=== PATIENT | male | born 1985 ===

== ENCOUNTER 2021-06-22 23:32 | Emergency (ER) | payer SELFPAY ==
--- NOTE | 2021-06-23 11:38 | Event Note ---
ED Screening Note Date of service: 06/23/21 Time: 11:35 ED Screening Note: 35-year-old male comes in reporting he is having blood in his urine back pain suprapubic pain. Patient was seen at [facility]. Patient had lab work done and MRI and it shows that patient has 2-3 grade hydronephrosis of his left kidney. Patient comes in stating he has pain. Paperwork recommends for him to have a CT scan with and without contrast. This initial assessment/diagnostic orders/clinical plan/treatment(s) is/are subject to change based on patients health status, clinical progression and re- assessment by fellow clinical providers in the ED. Further treatment and workup at subsequent clinical providers discretion. Patient/guardian urged not to elope from the ED as their condition may be serious if not clinically assessed and managed. Initial orders include: CBC CMP urinalysis CT abdomen and pelvis with and without contrast
--- NOTE | 2021-06-23 12:19 | Emergency Department Report ---
ED Abdominal Pain HPI - General Chief Complaint: Urogenital-Male Stated Complaint: DIFFICULTY URINE WITH BLOOD IN URINE Time Seen by Provider: 06/23/21 12:02 Source: patient Mode of arrival: Ambulatory Limitations: Language Barrier - History of Present Illness Initial Comments: Patient is a 35 years old male with no significant past medical his tory. Patient presented to the emergency room complaining of suprapubic pain that has been going on for 2 weeks. Patient described the pain as sharp with no radiation. Pain associated with hematuria. Patient seen by clinic and has an MRI done showing that patient has grade 2-3 hydronephrosis on the left side however they could not see a stone. Recommended a CT abdomen and pelvis with IV contrast. Patient denied any nausea or vomiting. No hemoptysis. MD Complaint: abdominal pain -: week(s) (2) Location: suprapubic Migration to: no migration Severity: moderate Quality: sharp Consistency: constant Associated Symptoms: denies other symptoms, hematuria - Related Data Allergies Allergy/AdvReac Type Severity Reaction Status Date / Time No Known Allergies Allergy Verified 06/23/21 13:59 ED Review of Systems ROS: Stated complaint: DIFFICULTY URINE WITH BLOOD IN URINE Other details as noted in HPI Comment: All other systems reviewed and negative Constitutional: denies: chills, fever Respiratory: denies: cough, shortness of breath, SOB with exertion, SOB at rest Cardiovascular: denies: chest pain, palpitations Gastrointestinal: abdominal pain. denies: nausea, vomiting, constipation, hematemesis, melena, hematochezia Genitourinary: hematuria. denies: testicular pain, testicular mass Musculoskeletal: denies: back pain Neurological: denies: headache, weakness, numbness, paresthesias, confusion ED Past Medical Hx - Past Medical History Previous Medical History?: Yes Additional medical history: kidney stone - Surgical History Past Surgical History?: Yes Additional Surgical History: for kidney stone - Social History Smoking Status: Never Smoker Substance Use Type: Alcohol ED Physical Exam - General Limitations: Language Barrier General appearance: alert, in no apparent distress - Head Head exam: Present: atraumatic, normocephalic, normal inspection - Eye Eye exam: Present: normal appearance, PERRL - ENT ENT exam: Present: normal exam, normal orophraynx, mucous membranes moist - Neck Neck exam: Present: normal inspection, full ROM. Absent: tenderness, meningismus - Respiratory Respiratory exam: Present: normal lung sounds bilaterally - Cardiovascular Cardiovascular Exam: Present: regular rate, normal rhythm, normal heart sounds - GI/Abdominal GI/Abdominal exam: Present: soft, normal bowel sounds. Absent: distended, tenderness, guarding, rebound, rigid, organomegaly, mass, bruit, pulsatile mass, hernia - Extremities Exam Extremities exam: Present: normal inspection, full ROM, normal capillary refill. Absent: tenderness, pedal edema, joint swelling, calf tenderness - Back Exam Back exam: Present: normal inspection, full ROM. Absent: CVA tenderness (R), CVA tenderness (L) - Neurological Exam Neurological exam: Present: alert, oriented X3, CN II-XII intact, normal gait, reflexes normal - Skin Skin exam: Present: warm, intact, normal color ED Medical Decision Making - Lab Data Result diagrams: 06/23/21 11:49 06/23/21 11:49 - Radiology Data Radiology results: report reviewed - Medical Decision Making Patient is a 35 years old male with no significant past medical history. Patient presented to the emergency room complaining of suprapubic pain that has been going on for 2 weeks. Patient described the pain as sharp with no radiation. Pain associated with hematuria. Patient seen by clinic and has an MRI done showing that patient has grade 2-3 hydronephrosis on the left side however they could not see a stone. Recommended a CT abdomen and pelvis with IV contrast. Patient denied any nausea or vomiting. No hemoptysis. Patient received morphine and Zofran. CT abdomen and pelvis with and without IV contrast showed a distal 1 cm left ureteric stone and also another 1 cm stone in the prostate urethra. Patient pain controlled. Patient inform about his CT abdomen pelvis finding and the need to follow-up with a urologist in the next 2 to 3 days for further management. Patient also given prescription for tramadol, Zofran and Flomax. Patient advised to return to the ER if he develop any new symptoms. Critical care attestation.: If time is entered above; I have spent that time in minutes in the direct care of this critically ill patient, excluding procedure time. ED Disposition Clinical Impression: Acute abdominal pain, Ureteric colic, Kidney stone on left side Disposition: HOME / SELF CARE / HOMELESS Is pt being admited?: No Condition: Stable Instructions: Kidney Stones, Renal Colic, [id number] Referrals: PRIMARY CARE, [Primary Care Provider] - 3-5 Days BRIGETTE ALVA MD [Staff Physician] - 3-5 Days Print Language: MALIAN
[2021-06-23 12:24] LABS: Bilirubin,Urine NEG (Negative); Blood,Urine SM (Negative); Color,Urine Straw (Yellow); Protein,Urine <15 mg/dL mg/dL (Negative); Urobilinogen,Urine < 2.0 mg/dL (<2.0)
[2021-06-23 12:31] LABS: Alanine Aminotransferase 72 units/L (7-56); Albumin 4.8 g/dL (3.9-5); Blood Urea Nitrogen 14 mg/dL (9-20); Calcium 9.8 mg/dL (8.4-10.2); Hemolysis Index 5
[2021-06-23 12:38] LABS: Basophils # (Auto) 0.1 K/mm3 (0.0-0.1); Basophils % (Auto) 0.8 % (0.0-1.8); Eosinophils # (Auto) 0.3 K/mm3 (0.0-0.4); Eosinophils % (Auto) 4.3 % (0.0-4.3); Hematocrit 43.3 % (35.5-45.6); Hemoglobin 14.4 gm/dl (11.8-15.2); Lymphocytes # (Auto) 1.9 K/mm3 (1.2-5.4); Lymphocytes % (Auto) 26.2 % (13.4-35.0); Mean Corpuscular HGB Conc 33 % (32-34); Mean Corpuscular Volume 87 fl (84-94); Monocytes # (Auto) 0.5 K/mm3 (0.0-0.8); Monocytes % (Auto) 7.4 % (0.0-7.3); Platelet Count 363 K/mm3 (140-440); Red Blood Count 4.96 M/mm3 (3.65-5.03); Red Cell Distribution Width 16.3 % (13.2-15.2)
[2021-06-23 12:52] LABS: BUN/Creatinine Ratio 20
[2021-06-23] MEDS: SODIUM CHLORIDE 0.9% 1000 ML 1,000 ML IV ONE (14:04)
[2021-06-23] MEDS: MORPHINE 4 MG/1 ML INJ IV ONE (14:04)
[2021-06-23] MEDS: ONDANSETRON 4 MG/2 ML INJ IV ONE (14:05)
--- NOTE | 2021-06-23 14:48 | Cat Scan Report ---
CT ABDOMEN AND PELVIS WITHOUT AND WITH CONTRAST INDICATION / CLINICAL INFORMATION: Hematuria, hydronephrosis and pain Omni 300 100 ml. TECHNIQUE: Axial CT images were obtained through the abdomen and pelvis before and after IV contrast. All CT scans at this location are performed using CT dose reduction for ALARA by means of automated exposure control. COMPARISON: None available. FINDINGS: LOWER CHEST: No significant abnormality. LIVER: No significant abnormality. GALLBLADDER: No significant abnormality. BILE DUCTS: No significant abnormality. PANCREAS: No significant abnormality. SPLEEN: No significant abnormality. ADRENALS: No significant abnormality. RIGHT KIDNEY / URETER: Nonobstructing 3 mm stone right upper pole. LEFT KIDNEY / URETER: 1.5 cm stone in the left lower pole. There are 2 stones in the distal left uret er with the largest measuring 1 cm. There is also a 1 cm stone in the prostatic urethra. These result in upstream moderate hydroureteronephrosis. STOMACH / SMALL BOWEL: No significant abnormality. COLON: No significant abnormality. APPENDIX: No significant abnormality. PERITONEUM: No free fluid. No free air. No fluid collection. LYMPH NODES: No significant adenopathy. AORTA / ARTERIES: No significant abnormality. IVC / VEINS: No significant abnormality. URINARY BLADDER: No significant abnormality. REPRODUCTIVE ORGANS: Stone in the prostatic urethra as above. ADDITIONAL FINDINGS: None. SKELETAL SYSTEM: No significant abnormality. IMPRESSION: 1. Moderate left hydroureteronephrosis secondary to 2 stones in the distal left ureter with the large st measuring 1 cm. There is additional 1 cm stone in the prostatic urethra. 2. Additional bilateral renal stones as above. Signer Name: Amari Lima MD Signed: 06/23/2021 2:44 PM Workstation Name: [id number]
[2021-06-23 15:16] VITALS: BP 121/77
== END 2021-06-23 15:25 | disposition home or self-care (01) ==
LOC: ED 23:32
DX: N23 Unspecified renal colic (principal); N20.0 Calculus of kidney; Z98.890 Other specified postprocedural states
CPT/HCPCS: 36415; 74178; 80053; 81001; 85025; 96361; 96374; 96375; 99284; J2270; J2405; J7030; Q9967